=== PATIENT | male | born 1955 | race Caucasian/White ===

== ENCOUNTER → 2022-12-12 09:36 | Outpatient (BNVA) | payer MEDICARE, SELFPAY | PROVIDERS: Family Provider Family Medicine; Visit Provider Podiatrist Foot & Ankle Surgery | DX: E11.42 Type 2 diabetes mellitus with diabetic polyneuropathy (principal); B35.1 Tinea unguium; G62.9 Polyneuropathy, unspecified | CPT/HCPCS: 11721; 99203 ==

== ENCOUNTER 2024-03-20 00:55 | Emergency (ER) | payer OTHER, SELFPAY ==
[2024-03-20] VITALS (10 sets, daily range): BP systolic 104–151; BP diastolic 62–98; PULSE 64–79; RESP 15–25; TEMP 36.5; O2SAT 92–96; BMI 27.1
--- NOTE | 2024-03-20 00:57 | ECG_ITS ---
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 Measurements Intervals [place] Rate: 76 P: 60 DE: 161 QRS: -50 QRSD: 118 T: 79 QT: 385 QTc: 433 Interpretive Statements SINUS RHYTHM POSSIBLE LEFT ATRIAL ENLARGEMENT [-0.1mV P-WAVE IN V1/V2] PATTERN CONSISTENT WITH PULMONARY DISEASE LEFT ANTERIOR FASCICULAR BLOCK [QRS AXIS <= -45, QR IN I, RS IN II] MODERATE T-WAVE ABNORMALITY, CONSIDER LATERAL ISCHEMIA [-0.1+ mV T-WAVE IN I/aVL/V5/V6] No previous ECG available for comparison Electronically Signed On 03-21-2024 0:07:21 CDT by Chaitanya Siddiqui M.D. [id number]
--- NOTE | 2024-03-20 01:08 | XRR_ITS ---
PROCEDURE INFORMATION: Exam: XR Chest Exam date and time: 03/20/2024 1:23 AM Age: 68 years old Clinical indication: Angina; Additional info: Chest pain TECHNIQUE: Imaging protocol: Radiologic exam of the chest. Views: 1 view. COMPARISON: No relevant prior studies available. FINDINGS: Lungs: Patchy left basilar atelectasis or other infiltrates. Pleural spaces: Small left pleural effusion. Heart/Mediastinum: No cardiomegaly. Bones/joints: Previous median sternotomy. Prior postsurgical changes in the cervical spine. XR/XR chest 1V portable [id number] IMPRESSION: 1. Patchy left basilar atelectasis or other infiltrates. 2. Small left pleural effusion.
--- NOTE | 2024-03-20 01:09 | ED_ITS ---
HPI - Chest Pain 2 General: Chief Complaint: Chest Pain Stated Complaint: CP Time Seen by Provider: 03/20/24 01:12 History of Present Illness: Patient presents to the ER with left-sided chest pain that radiates to his back. Patient been having this pain since about 10:00 last night. Is been constant and Getting worse. Patient had some mild shortness of breath. Patient denies any nausea or diaphoresis. Patient has a multivessel CABG about 10 years ago. Patient has had no stents since then. Patient used to see Dr. Siddiqui but has not seen him in a long time. Patient's only medicine he is on his lisinopril per his . Review of Systems 2 General: Reports: 10 or more systems reviewed and unremarkable except in HPI and below Physical Exam 2 Const: COMMON NORMALS: no acute distress, average body habitus, patient oriented x3, no limitations, healthy appearing, alert and well nourished HENMT: COMMON NORMALS: normocephalic, atraumatic, hearing grossly normal bilaterally, external ears normal, Normal external nose present and moist oral mucous membranes HEAD & SCALP: normocephalic and atraumatic NOSE: Normal external nose present EXTERNAL EAR: Yes external ears normal Eye: COMMON NORMALS: Equal, round and reactive pupils present, EOMs intact bilaterally, conjunctivae normal and no scleral icterus CONJUNCTIVA: Yes conjunctivae normal PUPIL: Yes Equal, round and reactive pupils present Neck/C-Spine: COMMON NORMALS: no JVD Chest: COMMONS NORMALS: normal inspection of the chest and normal palpation of entire chest wall Resp: COMMON NORMALS: normal respiratory effort, No retractions, No use of accessory muscles and clear to auscultation bilaterally AUSCULTATION: clear to auscultation bilaterally Cardio: COMMON NORMALS: no JVD, regular rate, regular rhythm, S1 normal heart sound present, S2 normal heart sound present, No gallops present (Cardio), No clicks present (Cardio), No murmurs present (Cardio) and No rub (Cardio) R ATE: regular rate RHYTHM: regular rhythm HEART SOUNDS: S1 normal heart sound present and S2 normal heart sound present Neuro: COMMON NORMALS: patient oriented x3 SENSORIUM/ORIENTATION: Yes alert Course 2 Vital Signs: Vital signs: Vital Signs Temperature 97.7 F 03/20/24 01:06 Pulse Rate 70 03/20/24 03:15 Respiratory Rate 15 06/26/24 03:15 Blood Pressure 133/78 03/20/24 03:15 Pulse Oximetry 95 03/20/24 03:15 Oxygen Delivery Me thod Room Air 03/20/24 03:00 MDM - Chest Pain Medical Decision Making Patient was worked up and seen her chest pain fashion with serial EKGs, lab work chest x-ray, all of which was essentially unremarkable, patient's initial troponin was 34, 2-hour troponin 33.5 for negative delta of 0.46, BNP 252, these results were discussed with the patient patient be discharged home to follow-up with 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 Differential Diagnosis Unlikely acute massive pulmonary embolism, acute respiratory failure, acute myocardial infarction, cardiac arrest or sudden cardiac Medical Records I reviewed the patient's medical records. Lab Data I reviewed the patient's lab results. 03/20/24 01:12 03/20/24 01:12 Radiology Impressions Chest X-Ray 03/20/24 01:08 IMPRESSION: 1. Patchy left basilar atelectasis or other infiltrates. 2. Small left pleural effusion. Laboratory Results WBC 11.16 10^3/uL (3.29-11.43) 03/20/24 01:12 RBC 5.50 10^6/uL (3.85-5.65) 03/20/24 01:12 Hgb 17.60 g/dL (11.27-16.99) H 03/20/24 01:12 Hct 50.6 % (37-53) 03/20/24 01:12 MCV 92.0 fl (82-101) 03/20/24 01:12 MCH 32.0 pg (27-33) 03/20/24 01:12 MCHC 34.8 g/dL (30-55) 03/20/24 01:12 RDW 12.8 % (12.1-15.1) 03/20/24 01:12 Plt Count 130 10^3/cmm (157-399) L 03/20/24 01:12 MPV 11.1 fL (7.4-10.4) H 03/20/24 01:12 Neut % (Auto) 61.9 % 03/20/24 01:12 Lymph % (Auto) 23.1 % 03/20/24 01:12 [place] % (Auto) 10.2 % 03/20/24 01:12 Eos % (Auto) 3.1 % 03/20/24 01:12 Baso % (Auto) 1.3 % 03/20/24 01:12 Neut # (Auto) 6.90 10^3/uL (1.8-7.7) 03/20/24 01:12 Lymph # (Auto) 2.6 10^3/uL (0.8-4.8) 03/20/24 01:12 [place] # (Auto) 1.1 10^3/uL (0.2-0.9) H 03/20/24 01:12 Eos # (Auto) 0.4 10^3/uL (0.0-0.8) 03/20/24 01:12 Baso # (Auto) 0.1 10^3/uL (0.0-0.1) 03/20/24 01:12 Nucleated RBC % (auto) 0 % 03/20/24 01:12 Nucleated RBCs # 0.0 /100WBC 03/20/24 01:12 Sodium 136 mmol/L (136-145) 03/20/24 01:12 Potassium 4.9 mmol/L (3.5-5.1) 03/20/24 01:12 Chloride 100 mmol/L (98-107) 03/20/24 01:12 Carbon Dioxide 26 mmol/L (22-29) 03/20/24 01:12 Anion Gap 14.9 (5-19) 03/20/24 01:12 BUN 21 mg/dL (8-23) 03/20/24 01:12 Creatinine 1.0 mg/dL (0.7-1.2) 03/20/24 01:12 GFR Calculation 73.9 mL/min (90-130) L 03/20/24 01:12 Glucose 135 mg/dL (65-115) H 03/20/24 01:12 Calculated Osmolality 287 mOsm/kg (285-295) 03/20/24 01:12 Calcium 9.3 mg/dL (8.5-10.5) 03/20/24 01:12 Total Bilirubin 0.9 mg/dL (0.15-1.2) 03/20/24 01:12 AST 21 U/L (0-40) 06/26/24 01:12 ALT 23 U/L (0-41) 03/20/24 01:12 Alkaline Phosphatase 114 U/L (40-130) 03/20/24 01:12 Troponin T Baseline 34 ng/L (0-15) H 03/20/24 01:12 Troponin T 120 Minute 33.54 ng/L (0-15) H 03/20/24 02:21 Delta Troponin T -0.46 ABS# (0-10) L 03/20/24 02:21 NT-Pro-B Natriuret Pep 252 pg/mL (0-125) H 03/20/24 01:12 Total Protein 7.5 g/dL (6.6-8.7) 03/20/24 01:12 Albumin 4.2 g/dL (3.5-5.2) 03/20/24 01:12 Globulin 3.3 g/dL (1.3-4.6) 03/20/24 01:12 All radiology interpretation(s) finalized by discharge Discharge Plan Discharge Patient Disposition: Home Clinical Impression: Chest pain Qualifiers: Chest pain type: unspecified Qualified Code(s): R07.9 - Chest pain, unspecified Condition: Stable Prescriptions: No Action glipizide 10 mg tablet 10 mg PO DAILY Discharge Orders: Discharge ED (Routine); Ordered 03/20/24 Ordered By: Andrew Lopez Referrals: Jesus Alberto North [Primary Care Provider] - 1 week Patient Instructions: Chest Pain (ED) Activity Restrictions/Additional Instructions: Your evaluation in the ER did not reveal any acute cause of your chest pain. It is felt to be noncardiac in nature at this time. 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 If your chest pain worsens or returns please feel free to return to the ER. Coding Level of Care Code ED Cloth Sponger for Judy Cope
[2024-03-20] MEDS: nitroglycerin 0.4 mg sublingual Tablet 0.400000000000000022 MG SUBLINGUAL (01:13)
[2024-03-20] MEDS: aspirin 81 mg Chew Tablet 324 MG PO (01:13)
[2024-03-20] MEDS: ondansetron 2 mg/ML SDV 2 mL 4 MG IVP (01:15)
[2024-03-20] MEDS: morphine 4 mg/mL SDV 1 mL 2 MG IVP (01:16)
[2024-03-20 01:19] LABS: Basophils # 0.1 10^3/uL (0.0-0.1); Basophils % 1.3 %; Eosinophils # 0.4 10^3/uL (0.0-0.8); Eosinophils % 3.1 %; Hematocrit 50.6 % (37-53); Lymphocytes # 2.6 10^3/uL (0.8-4.8); Lymphocytes % 23.1 %; Mean Corpuscular HGB Conc 34.8 g/dL (30-55); Mean Platelet Volume 11.1 fL (7.4-10.4); Monocytes # 1.1 10^3/uL (0.2-0.9); Monocytes % 10.2 %; Neutrophils % 61.9 %; Nucleated Red Blood Cells % 0 %; Platelet Count 130 10^3/cmm (157-399); Red Cell Distribution Width 12.8 % (12.1-15.1); White Blood Count 11.16 10^3/uL (3.29-11.43)
[2024-03-20 01:35] LABS: Troponin(5th) Baseline 34 ng/L (0-15)
[2024-03-20 01:38] LABS: Alanine Aminotransferase 23 U/L (0-41); Albumin Level 4.2 g/dL (3.5-5.2); Alkaline Phosphatase 114 U/L (40-130); Anion Gap 14.9 (5-19); Aspartate Amino Transferase 21 U/L (0-40); Blood Urea Nitrogen 21 mg/dL (8-23); Calcium 9.3 mg/dL (8.5-10.5); Carbon Dioxide 26 mmol/L (22-29); Chloride 100 mmol/L (98-107); Creatinine Clr Calc Pharmacy 80.5459; Globulin 3.3 g/dL (1.3-4.6); Glomerular Filtration Rate 73.9 mL/min (90-130); Glucose 135 mg/dL (65-115); Osmolality Calculated 287 mOsm/kg (285-295); Potassium 4.9 mmol/L (3.5-5.1); Sodium 136 mmol/L (136-145); Total Bilirubin 0.9 mg/dL (0.15-1.2); Total Protein 7.5 g/dL (6.6-8.7)
[2024-03-20 02:17] LABS: NT Pro B Type Natriuretic Pept 252 pg/mL (0-125)
--- NOTE | 2024-03-20 02:43 | ECG_ITS ---
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 Measurements Intervals [place] Rate: 65 P: 0 NC: 173 QRS: -48 QRSD: 134 T: 76 QT: 402 QTc: 418 Interpretive Statements SINUS RHYTHM INTRAVENTRICULAR CONDUCTION DELAY [130+ ms QRS DURATION] Left axis deviation Compared to ECG 03/20/2024 00:57:02 Intraventricular conduction delay now present T-wave abnormality no longer present Possible ischemia no longer present Electronically Signed On 03-21-2024 0:17:05 CDT by Chaitanya Siddiqui M.D. [id number]
[2024-03-20 02:52] LABS: Troponin 5 2HR 33.54 ng/L (0-15)
[2024-03-20 02:55] LABS: Troponin 5 2HR Delta -0.46 ABS# (0-10)
== END 2024-03-20 03:15 | disposition home or self-care (01) ==
PROVIDERS: Emergency Provider Emergency Medicine; PCP Family Medicine
DX: R07.9 Chest pain, unspecified (principal)
CPT/HCPCS: 36415; 71045; 80053; 83880; 84484; 85025; 93005; 96374; 96375; 99285; J2270; J2405

== ENCOUNTER → 2024-11-07 07:52 | Outpatient (BNVA) | payer OTHER, SELFPAY | PROVIDERS: PCP Family Medicine; Referring Provider Family Medicine; Visit Provider Orthopaedic Surgery | DX: M54.50 Low back pain, unspecified (principal); M54.2 Cervicalgia | CPT/HCPCS: 72050; 72110 ==

== ENCOUNTER 2025-04-11 09:33 | Outpatient (RCR) | payer OTHER, SELFPAY | END 2025-04-24 23:59 | disposition home or self-care (01) | LOC: SPT 09:33 | PROVIDERS: Visit Provider Family Medicine | DX: M50.00 Cervical disc disorder with myelopathy, unspecified cervical region (principal) | CPT/HCPCS: 97162 ==

== ENCOUNTER 2025-04-25 05:00 | Outpatient (RCR) | payer OTHER, SELFPAY | END 2025-05-25 23:59 | disposition home or self-care (01) | LOC: SPT 05:00 | PROVIDERS: Visit Provider Family Medicine | DX: M50.00 Cervical disc disorder with myelopathy, unspecified cervical region (principal) | CPT/HCPCS: 97110; 97530 ==

== ENCOUNTER 2025-05-26 05:00 | Outpatient (RCR) | payer OTHER, SELFPAY | END 2025-06-24 23:59 | disposition home or self-care (01) | LOC: SPT 05:00 | PROVIDERS: Visit Provider Family Medicine | DX: M50.00 Cervical disc disorder with myelopathy, unspecified cervical region (principal) | CPT/HCPCS: 97110; 97530 ==

== ENCOUNTER → 2025-09-05 08:09 | Outpatient (BNVA) | payer OTHER, SELFPAY | PROVIDERS: Referring Provider Family Medicine Geriatric Medicine; Visit Provider Internal Medicine Cardiovascular Disease | DX: I11.0 Hypertensive heart disease with heart failure (principal); I50.9 Heart failure, unspecified; E11.9 Type 2 diabetes mellitus without complications; Z79.84 Long term (current) use of oral hypoglycemic drugs; I71.40 Abdominal aortic aneurysm, without rupture, unspecified; I72.3 Aneurysm of iliac artery; Z95.1 Presence of aortocoronary bypass graft; F17.200 Nicotine dependence, unspecified, uncomplicated; R07.9 Chest pain, unspecified; I49.8 Other specified cardiac arrhythmias; I44.4 Left anterior fascicular block; R94.31 Abnormal electrocardiogram [ECG] [EKG] | CPT/HCPCS: 93005; 99204 ==